=== PATIENT | female | born 1950 | race Caucasian/White ===

== ENCOUNTER 2017-07-30 19:28 | Emergency (ER) | payer MEDICARE, BC ==
[~2017-07-30] VITALS: Ht 157.5 cm; Wt 54.5 kg
[2017-07-30] MEDS ORDERED: SING10TA32 PO (19:44)
[2017-07-30] MEDS ORDERED: IBUP-1114 PO (19:44)
[2017-07-30] MEDS ORDERED: FLUT11IN INH (19:44)
[2017-07-30] MEDS ORDERED: OMEP40CA2 PO (19:44)
[2017-07-30] MEDS ORDERED: KEFL500C17 PO (20:14)
[2017-07-30] MEDS ORDERED: CEPHALEXIN 500 MG CAP PO ONE (20:15)
[2017-07-30] MEDS ORDERED: AUGM875T28 PO (20:18)
[2017-07-30] MEDS ORDERED: AUGMENTIN 875 MG TAB PO ONE (20:30)
[2017-07-30 20:40] VITALS: BP 148/88
== END 2017-07-30 20:49 | disposition home or self-care (01) ==
LOC: M ED 19:28
DX: L03.011 Cellulitis of right finger (principal); J45.909 Unspecified asthma, uncomplicated; H54.8 Legal blindness, as defined in USA; K21.9 Gastro-esophageal reflux disease without esophagitis; E78.00 Pure hypercholesterolemia, unspecified; Z79.51 Long term (current) use of inhaled steroids; Z79.899 Other long term (current) drug therapy; Z98.890 Other specified postprocedural states; Z96.9 Presence of functional implant, unspecified